=== PATIENT | male | born 1995 | race Caucasian/White ===

== ENCOUNTER 2024-05-24 03:23 | Emergency (ER) | payer SELFPAY ==
[2024-05-24] MEDS ORDERED: HYDROCODONE/APAP 5/325 MG TAB ONE (03:50)
[2024-05-24] MEDS ORDERED: ONDANSETRON 4 MG (ODT) TAB ONE (03:50)
[2024-05-24] MEDS ORDERED: AMOX/K CLAV 875 MG TAB ONE (03:50)
[2024-05-24] MEDS ORDERED: LORAZEPAM 1 MG TABLET ONE (03:51)
[2024-05-24] MEDS ORDERED: LIDOCAINE VISCOUS 2% 10ML ORAL SOLN ONE (03:51)
--- NOTE | 2024-05-24 04:08 | ER ---
Nurse's Notes [facility] Name: Chapin Flores Age: 28 yrs Sex: Male : 1995 Arrival Date: 05/24/2024 Time: 03:23 Bed 13 Private MD: Diagnosis: Disorder of teeth and supporting structures, unspecified Presentation: 05/24 03:29 Chief complaint: Patient states: SEVER TOOTH, NAUSEA AND VOMITING FROM PAIN. ha1 03:29 Coronavirus screen: Vaccine status: At this time, the client does not indicate any ha1 symptoms associated with coronavirus-19. Ebola Screen: No symptoms or risks identified at this time. Initial Sepsis Screen: Does the patient meet any 2 criteria? No. Patient's initial sepsis screen is negative. Does the patient have a suspected source of infection? No. Patient's initial sepsis screen is negative. Risk Assessment: Do you want to hurt yourself or someone else? Patient reports no desire to harm self or others. Onset of symptoms was May 24, 2024. :29 Method Of Arrival: Ambulatory ha1 03:29 Acuity: JER 4 ha1 Historical: - Allergies: 03:46 No Known Allergies; ha1 - PMHx: 03:46 Hypertensive disorder; ha1 - Immunization history:: Adult Immunizations up to date. - Infectious Disease History:: Denies. - Social history:: Smoking status: Patient denies any tobacco usage or history of. Screenin:06 [facility] ED Fall Risk Assessment (Adult) History of falling in the last 3 months, ha1 including since admission No falls in past 3 months (0 pts) Confusion or Disorientation No (0 pts) Intoxicated or Sedated No (0 pts) Impaired Gait No (0 pts) Mobility Assist Device Used No (0 pt) Altered Elimination No (0 pt) Score/Fall Risk Level 0 - 2 = Low Risk Oriented to surroundings, Maintained a safe environment, Educated pt \T\ family on fall prevention, incl call for assistance when getting out of bed, Hourly rounding (assess needs \T\ fall precautionary measures) done. Abuse screen: Denies threats or abuse. Denies injuries from another. Nutritional screening: No deficits noted. Tuberculosis screening: No symptoms or risk factors identified. Assessment: 03:29 General: Appears uncomfortable, Behavior is anxious, restless. Pain: Complains of pain ha1 in left buccal mucosa Pain radiates to HEAD Pain currently is 10 out of 10 on a pain scale. Quality of pain is described as sharp, stabbing, throbbing, Pain began gradually. Neuro: Level of Consciousness is awake, alert, obeys commands, Oriented to person, place, time, situation. Cardiovascular: Capillary refill < 3 seconds Patient's skin is warm and dry. Respiratory: Airway is patent Respiratory effort is even, unlabored, Respiratory pattern is regular, symmetrical. GI: Reports nausea, vomiting. EENT: Reports pain in left buccal mucosa. Derm: Skin is pink, warm \T\ dry. 04:31 Reassessment: Patient and/or family updated on plan of care and expected duration. Pain rg5 level reassessed. Patient is alert, oriented x 3, equal unlabored respirations, skin warm/dry/pink. Patient states symptoms have improved. Vital Signs: 03:29 BP 160 / 93; Pulse 87; Resp 17 S; Temp 97.6(T); Pulse Ox 99% on R/A; Weight 104.33 kg; ha1 Height 5 ft. 11 in. ; 04:12 BP 145 / 99; Pulse 86; Resp 19; Temp 98; Pulse Ox 99% on R/A; Pain 6/10; rg5 03:29 Body Mass Index 32.08 (104.33 kg, 180.34 cm) ha1 04:12 Pain Scale: Adult rg5 ED Course: 03:24 Patient arrived in ED. [id number] 03:29 Patient has correct armband on for positive identification. Placed in gown. Bed in low ha1 position. Call light in reach. Side rails up X 1. 03:29 Provided Education on: PLAN OF CARE . ha1 03:31 Arash Barron PA is PHCP. cp 03:31 Arash Cha MD is Attending Physician. cp 03:35 Jefry Rowley RN is Primary Nurse. rg5 03:46 Triage completed. ha1 04:31 Arm band placed on right wrist. rg5 04:31 No provider procedures requiring assistance completed. Patient did not have IV access rg5 during this emergency room visit. Administered Medications: 03:46 CANCELLED (Physician Discretion): hydrocodone-[id number] mg-325 mg 1 tabs PO once cp 03:59 Drug: Lidocaine Mucous Membrane Gel 2 % 1 ea 15 ml Mucous Membrane once Volume: 15 ml; ha1 Route: Mucous Membrane; 04:00 Drug: Ondansetron PO 4 mg PO once Route: PO; ha1 04:12 Follow up: Response: No adverse reaction rg5 04:00 Drug: Amoxicillin-Clavulanate PO 875 mg PO once Route: PO; ha1 04:11 Follow up: Response: No adverse reaction; Pain is decreased rg5 04:00 Drug: LORazepam PO 1 mg PO once Route: PO; ha1 04:11 Follow up: Response: No adverse reaction; Pain is decreased rg5 04:00 Drug: HYDROcodone-acetaminophen PO 5 mg-325 mg 1 tabs PO once Route: PO; ha1 04:11 Follow up: Response: No adverse reaction; Pain is decreased rg5 04:20 Drug: Promethazine IM 25 mg IM once Route: IM; Site: right deltoid; rg5 04:30 Follow up: Response: No adverse reaction; Pain is decreased rg5 04:30 Drug: Ketorolac IM 60 mg IM once Route: IM; Site: right deltoid; rg5 04:30 Follow up: Response: No adverse reaction; Pain is decreased rg5 Medication: 04:31 VIS not applicable for this client. rg5 Outcome: 04:07 Discharge ordered by MD. cp 04:31 Discharged to home ambulatory, rg5 04:31 Condition: stable 04:31 Discharge instructions given to patient, Instructed on discharge instructions, follow up and referral plans. Demonstrated understanding of instructions, follow-up care, medications, Prescriptions given X 3, 04:56 Patient left the ED. rg5 Signatures: Arash Barron PA PA cp Jeffries, Jennifer jj6 Tiffanie Carrera RN RN ha1 Jefry Rowley RN RN rg5 Corrections: (The following items were deleted from the chart) 04:07 03:29 GI: No signs and/or symptoms were reported involving the gastrointestinal system. ha1 ha1
--- NOTE | 2024-05-24 04:08 | EDPHYS ---
Physician Documentation [facility] Name: Chapin Flores Age: 28 yrs Sex: Male : 1995 Arrival Date: 05/24/2024 Time: 03:23 Bed 13 Private MD: ABHIJEET Physician Arash Cha HPI: 05/24 03:45 This 28 yrs old Male presents to ER via Ambulatory with complaints of Toothache, cp Nausea/Vomiting. 03:45 The patient presents with pain. The problem is located in the left upper back molar and cp left lower back molar. Onset: The symptoms/episode began/occurred this past , pain worse today. 03:45 Duration: The symptoms are continuous, and are steadily getting worse. Associated signs cp and symptoms: Pertinent positives: nausea, vomiting, severe pain, Pertinent negatives: dysphagia, fever, swelling. Historical: - Allergies: 03:46 No Known Allergies; ha1 - PMHx: 03:46 Hypertensive disorder; ha1 - Immunization history:: Adult Immunizations up to date. - Infectious Disease History:: Denies. - Social history:: Smoking status: Patient denies any tobacco usage or history of. ROS: 03:50 Constitutional: Negative for body aches, chills, fever, poor PO intake, cp 03:50 Eyes: Negative for injury, pain, redness, and discharge, cp 03:50 ENT: Positive for dental pain, Negative for drainage from ear(s), ear pain, sore throat, difficulty swallowing, difficulty handling secretions, 03:50 Cardiovascular: Negative for chest pain, 03:50 Respiratory: Negative for cough, shortness of breath, wheezing, 03:50 Abdomen/GI: Positive for nausea and vomiting, Negative for abdominal pain, 03:50 Neuro: Negative for altered mental status, dizziness, headache, weakness, 03:50 All other systems are negative, Exam: 03:55 Constitutional: The patient appears in no acute distress, alert, awake, cp non-diaphoretic, non-toxic, well developed, well nourished, anxious, uncomfortable, 03:55 Head/Face: Normocephalic, atraumatic. cp 03:55 Eyes: Periorbital structures: appear normal, Conjunctiva: normal, no exudate, no injection, Sclera: no appreciated abnormality, Lids and lashes: appear normal, bilaterally, 03:55 ENT: External ear(s): are unremarkable, Ear canal(s): are normal, clear, TM's: dullness, bilaterally, Nose: is normal, Mouth: Lips: moist, Oral mucosa: pink and intact, moist, Gums: pink, abscess, is not appreciated, Posterior pharynx: Airway: no evidence of obstruction, patent, swelling, is not appreciated, erythema, is not appreciated, exudate, is not appreciated, Dental exam: abscess, is not appreciated, dental caries, that is mild, diffusely, fractured teeth are noted, not appreciated, gum swelling, not appreciated, pain, that is severe, specifically in the lower left third molar (#17) and lower left second molar (#18), Voice: is normal, 03:55 Neck: ROM/movement: is normal, is supple, without pain, no range of motions limitations, Lymph nodes: no appreciated lymphadenopathy, 03:55 Chest/axilla: Inspection: normal, 03:55 Cardiovascular: Rate: normal, Rhythm: regular, 03:55 Respiratory: the patient does not display signs of respiratory distress, Respirations: normal, no use of accessory muscles, no retractions, labored breathing, is not present, Breath sounds: are clear throughout, no decreased breath sounds, no stridor, no wheezing, 03:55 Abdomen/GI: Inspection: abdomen appears normal, Palpation: abdomen is soft and non-tender, in all quadrants, 03:55 Neuro: Orientation: to person, place \T\ time. Mentation: is normal, Motor: moves all fours, strength is normal, Vital Signs: 03:29 BP 160 / 93; Pulse 87; Resp 17 S; Temp 97.6(T); Pulse Ox 99% on R/A; Weight 104.33 kg; ha1 Height 5 ft. 11 in. ; 04:12 BP 145 / 99; Pulse 86; Resp 19; Temp 98; Pulse Ox 99% on R/A; Pain 6/10; rg5 03:29 Body Mass Index 32.08 (104.33 kg, 180.34 cm) ha 04:12 Pain Scale: Adult rg5 MDM: 03:31 Medical Screening Exam initiated cp 03:55 Differential diagnosis: dental caries, dental abscess, pericoronitis, acute necrotizing cp ulcerative gingivitis, gingivostomatitis. 04:06 Data reviewed: vital signs, nurses notes, and as a result, I will discharge patient. cp 04:06 I considered the following discharge prescriptions or medication management in the cp emergency department Medications were administered in the Emergency Department. See MAR. Counseling: I had a detailed discussion with the patient and/or guardian regarding the historical points, exam findings, and any diagnostic results supporting the discharge/admit diagnosis, the need for outpatient follow up, a dentist, to return to the emergency department if symptoms worsen or persist or if there are any questions or concerns that arise at home. Response to treatment: the patient's symptoms have mildly improved after treatment, and as a result, I will discharge patient. Administered Medications: 03:46 CANCELLED (Physician Discretion): hydrocodone-[id number] mg-325 mg 1 tabs PO once cp 03:59 Drug: Lidocaine Mucous Membrane Gel 2 % 1 ea 15 ml Mucous Membrane once Volume: 15 ml; ha1 Route: Mucous Membrane; 04:00 Drug: Ondansetron PO 4 mg PO once Route: PO; ha1 04:12 Follow up: Response: No adverse reaction rg5 04:00 Drug: Amoxicillin-Clavulanate PO 875 mg PO once Route: PO; ha1 04:11 Follow up: Response: No adverse reaction; Pain is decreased rg5 04:00 Drug: LORazepam PO 1 mg PO once Route: PO; ha1 04:11 Follow up: Response: No adverse reaction; Pain is decreased rg5 04:00 Drug: HYDROcodone-acetaminophen PO 5 mg-325 mg 1 tabs PO once Route: PO; ha1 04:11 Follow up: Response: No adverse reaction; Pain is decreased rg5 04:20 Drug: Promethazine IM 25 mg IM once Route: IM; Site: right deltoid; rg5 04:30 Follow up: Response: No adverse reaction; Pain is decreased rg5 04:30 Drug: Ketorolac IM 60 mg IM once Route: IM; Site: right deltoid; rg5 04:30 Follow up: Response: No adverse reaction; Pain is decreased rg5 Disposition Summary: 05/24/24 04:07 Discharge Ordered Notes: Location: Home cp Problem: new cp Symptoms: have improved cp Condition: Stable cp Diagnosis - Disorder of teeth and supporting structures, unspecified cp Followup: cp - With: Private Physician - When: 2 - 3 days - Reason: Recheck today's complaints Discharge Instructions: - Discharge Summary Sheet cp - Dental Pain cp Forms: - Medication Reconciliation Form cp - Antibiotic Education cp - Prescription Opioid Use cp - Patient Portal Instructions cp - Leadership Thank You Letter cp Prescriptions: - Amoxicillin 875 mg Oral Tablet - take 1 tablet ORAL route every 12 hours for 10 days; 20 tablet; Refills: 0, cp Product Selection Permitted - Anaprox DS 550 mg Oral Tablet - take 1 tablet ORAL route every 12 hours As needed; 20 tablet; Refills: 0, cp Product Selection Permitted - ondansetron 8 mg Oral Tablet,disintegrating - take 1 tablet ORAL route every 12 hours; 10 tablet; Refills: 0, Product cp Selection Permitted Signatures: Arash Barron PA PA cp Ayala, Heidy RN RN ha1 Jefry Rowley RN RN rg5 Corrections: (The following items were deleted from the chart) 03:46 03:45 HYDROcodone-acetaminophen PO 10 mg-325 mg 1 tabs PO once ordered. cp cp
[2024-05-24] MEDS ORDERED: KETOROLAC 30 MG/ML INJ ONE (04:25)
[2024-05-24] MEDS ORDERED: PROMETHAZINE INJ 25 MG/ML AMP ONE (04:25)
[2024-05-24 05:00] VITALS: O2SAT 99
[2024-05-24 05:01] VITALS: BP 145/99; TEMP 98
== END 2024-05-24 04:56 | disposition home or self-care (01) ==
LOC: ER 03:23
DX: K08.89 Other specified disorders of teeth and supporting structures (principal); R11.2 Nausea with vomiting, unspecified
CPT/HCPCS: 96372; 99284; J2550; Q0162